=== PATIENT | male | born 1975 | race Hispanic/Latino ===

== ENCOUNTER 2019-03-08 13:27 | Outpatient (CLI) | payer BC, OTHER ==
--- NOTE | 2019-03-08 13:58 | RAD ---
EXAM: Two views chest PROVIDED CLINICAL HISTORY: Dyspnea COMPARISON: 03/29/2014 FINDINGS: Cardiac silhouette and pulmonary vasculature are within normal limits. There is linear atelectasis v ersus scarring at the left lung base. Lungs otherwise appear clear. Previously seen parenchymal density in the right lower lobe has resolved. The osseous structures have a normal appearance. IMPRESSION: 1. Mild atelectasis versus scarring at left lung base. There is otherwise no acute cardiopulmonary pr ocess..
== END 2019-03-08 13:28 | disposition home or self-care (01) ==
LOC: RAD 13:27
PROVIDERS: ATTEND Internal Medicine Critical Care Medicine
DX: R06.00 Dyspnea, unspecified (principal)
CPT/HCPCS: 71046

== ENCOUNTER 2021-02-10 10:43 | Emergency (ER) | payer BC, OTHER ==
[2021-02-10] MEDS ORDERED: Lidocaine 1% w/Epinephrine 1:100K 20 ML VIAL ONE (11:42)
== END 2021-02-10 12:06 | disposition home or self-care (01) ==
LOC: ERS 10:43
DX: L02.811 Cutaneous abscess of head [any part, except face] (principal)
CPT/HCPCS: 10060; 70450